=== PATIENT | female | born 1950 | race Caucasian/White ===

== ENCOUNTER 2023-06-04 06:28 | Day surgery (SDC) | payer MEDICARE ==
[2023-06-03 13:34] VITALS: BMI 23.6
[~2023-06-04 06:28] MED LIST: Enoxaparin 25 MG, EPINEPHrine 0.3 MG in Ophthalmic Irrigation Solution 500 ML FS SCH
[2023-06-04] MEDS ORDERED: Midazolam HCl 2 mg/2 ml Vial ONE (06:31)
[2023-06-04] MEDS ORDERED: fentaNYL 50 mcg/mL 1 mL Vial ONE (06:45)
[2023-06-04] MEDS ORDERED: PHENYLephrine 2.5% Ophth Soln 15 ml Bottle ONE (07:23)
[2023-06-04] MEDS ORDERED: Cyclopentolate 1% Opth Drop 2 ML BOT ONE (07:23)
[2023-06-04] MEDS ORDERED: Triamcinolone 40 MG/ML VIAL ONE (09:19)
[2023-06-04] MEDS ORDERED: PROPOFOL 200 MG/20 ML VIAL ONE (09:19)
[2023-06-04] MEDS ORDERED: Indocyanine Green 25 MG/10 ML VIAL ONE (09:19)
[2023-06-04] MEDS ORDERED: Bupivacaine 0.75% 10 ML VIAL ONE (09:19)
[2023-06-04] MEDS ORDERED: Maxitrol 0.1% Opth Oint 3.5 GM TUBE ONE (09:19)
[2023-06-04] MEDS ORDERED: Lidocaine 1% PF 5 ML VIAL ONE (09:19)
[2023-06-04] MEDS ORDERED: Lidocaine 4% PF 5 ML AMP ONE (09:19)
[2023-06-04] MEDS ORDERED: CEFAZOLIN 1 GM VIAL ONE (09:19)
[2023-06-04] MEDS ORDERED: hydrALAZINE 20 MG/ML VIAL ONE (10:21)
[2023-06-04] MEDS ORDERED: Ondansetron PF 4 MG/2 ML Vial ONE (10:43)
== END 2023-06-04 11:27 | disposition home or self-care (01) ==
LOC: SDC 06:28
PROVIDERS: ATTEND Ophthalmology Retina Specialist
PROC: 08T53ZZ Resection of Left Vitreous, Percutaneous Approach (ICD-10-PCS; principal; 2023-06-04)
DX: H35.342 Macular cyst, hole, or pseudohole, left eye (principal)
CPT/HCPCS: 67025; 67042; J0360; J3010; J0171; J0690; J1650; J2250; J2405; J2704; J3301; J3490

== ENCOUNTER 2025-10-26 16:47 | Emergency (ER) | payer MEDICARE ==
[2025-10-26] MEDS ORDERED: Vancomycin 1 GM/200 ML (FROZEN) BAG ONE (18:02)
[2025-10-26 18:19] LABS: #Basophils 0.05 10x3/uL (0.0-0.2); #Eosinophils 0.32 10x3/uL (0.0-0.7); #Monocytes 0.42 10x3/uL (0.11-0.59); #Neutrophils 4.97 10x3/uL (1.40-6.50); %Basophils 0.6 % (0.0-1.0); %Eosinophils 3.9 % (0.0-10.0); %Lymphocytes 30.1 % (21.0-51.0); %Monocytes 5.1 % (0.0-10.0); %Neutrophils 59.8 % (42.0-75.0); Hematocrit 40.7 % (36.0-47.0); Hemoglobin 13.3 g/dL (12.0-16.0); Mean Corpuscular Hemoglobin 29.0 pg (27.0-31.0); Mean Corpuscular Volume 88.7 fL (78.0-98.0); Platelet Count 297 10x3/uL (130-400); Red Blood Cell (RBC) Count 4.59 mill/uL (4.20-5.40); White Blood Cell (WBC) Count 8.30 10x3/uL (4.8-10.8)
[2025-10-26 18:35] LABS: ALT (SGPT) 35 U/L (Less than 34); AST (SGOT) 44 U/L (11-34); Albumin 3.8 g/dL (3.1-4.5); Alkaline Phosphatase 113 U/L (40-110); Anion Gap 16 mmol/L (10-20); BUN (Urea Nitrogen) 29 mg/dL (9.8-20.1); Bilirubin, Total 0.2 mg/dL (0.3-1.2); Calc. Creatinine Clearance 0 mL/min (70-130); Calcium 10.2 mg/dL (7.8-10.44); Carbon Dioxide 20 mmol/L (23-31); Chloride 111 mmol/L (98-107); Globulin 3.8 g/dL (2.4-3.5); Glucose 95 mg/dL (83-110); Potassium 3.9 mmol/L (3.5-5.1); Sodium 143 mmol/L (136-145)
== END 2025-10-26 19:27 | disposition home or self-care (01) ==
LOC: ERS 16:47
DX: L03.317 Cellulitis of buttock (principal); R74.01 Elevation of levels of liver transaminase levels; I10 Essential (primary) hypertension; E78.5 Hyperlipidemia, unspecified; Z79.2 Long term (current) use of antibiotics
CPT/HCPCS: 80053; 85025; 86141; 96365; J3373